=== PATIENT | male | born 1945 | race American Indian/Alaskan Native ===

== ENCOUNTER 2018-05-27 16:39 | Outpatient (REF) | payer MEDICARE, SELFPAY ==
[2018-05-27 19:28] LABS: HCT 47.7 % (40.0-50.0); HGB 15.8 g/dL (13.5-17.5); Mean Corp. HGB Concentration 33.1 g/dL (32.0-36.0); Mean Corpuscular Hemoglobin 29.2 pg (27.0-33.0); Mean Platelet Volume 11.2 fL (8.0-11.0); Platelet Count 144 x1000/uL (130-400); RBC 5.42 m/cumm (4.50-6.00); RBC Distribution Width 13.5 % (11.8-14.1); White Blood Cell Count 9.93 k/cumm (4.4-10.8)
[2018-05-27 19:54] LABS: Albumin 4.1 g/dL (3.4-5.0); Anion Gap 10.6 mmol/L (3-11); BUN 21 mg/dL (7-18); CO2 27.4 mmol/L (21.0-32.0); CREATININE 0.93 mg/dL (0.70-1.30); Chloride 103 mmol/L (98-107); Glucose 194 mg/dL (70-100); PHOSPHORUS 3.9 mg/dL (2.6-4.7); Sodium 141 mmol/L (136-145)
[2018-05-27 20:06] LABS: LDL CHOLESTEROL 95 mg/dL (<100)
== END 2018-05-27 16:59 ==
LOC: NCHCN 16:39
PROVIDERS: PCP Internal Medicine; Visit Provider Internal Medicine
DX: G31.84 Mild cognitive impairment of uncertain or unknown etiology (principal); M11.80 Other specified crystal arthropathies, unspecified site; E11.40 Type 2 diabetes mellitus with diabetic neuropathy, unspecified; E11.8 Type 2 diabetes mellitus with unspecified complications; Z79.4 Long term (current) use of insulin
CPT/HCPCS: 80069; 83721; 85027

== ENCOUNTER 2019-06-16 19:05 | Outpatient (REF) | payer MEDICARE, SELFPAY ==
[2019-06-16 19:29] LABS: ALT 41 U/L (16-63); Anion Gap 9.5 mmol/L (3-11); BUN 22 mg/dL (7-18); CO2 26.5 mmol/L (21.0-32.0); CREATININE 1.11 mg/dL (0.70-1.30); Calcium 8.8 mg/dL (8.5-10.1); Chloride 104 mmol/L (98-107); Glucose 168 mg/dL (70-100); LDL CHOLESTEROL 82 mg/dL (<100); Sodium 140 mmol/L (136-145); TSH 1.28 uIU/mL (0.36-3.74)
== END 2019-06-16 19:25 ==
LOC: NCHCN 19:05
PROVIDERS: PCP Internal Medicine; Visit Provider Internal Medicine
DX: E11.8 Type 2 diabetes mellitus with unspecified complications (principal); I10 Essential (primary) hypertension
CPT/HCPCS: 80048; 83721; 84443; 84460

== ENCOUNTER 2020-09-05 18:17 | Outpatient (REF) | payer MEDICARE, SELFPAY ==
[2020-09-05 15:55] LABS: HCT 46.7 % (40.0-50.0); HGB 15.5 g/dL (13.5-17.5); MCH 30.1 pg (27.0-33.0); MCHC 33.2 % (32.0-36.0); MCV 90.7 fL (80-95); MPV 11.1 fL (8.0-11.0); Platelet Count 135 10^3/uL (130-400); RBC 5.15 10^6/uL (4.36-5.78); RDW 12.2 % (11.8-14.1); RDW-SD 40.9 fL
[2020-09-05 16:49] LABS: Anion Gap 10.8 mmol/L (3-11); BUN 20 mg/dL (7-18); CO2 26.2 mmol/L (21.0-32.0); CREATININE 1.02 mg/dL (0.70-1.30); Calcium 8.8 mg/dL (8.5-10.1); Chloride 103 mmol/L (98-107); Glucose 227 mg/dL (74-106); Sodium 140 mmol/L (136-145); Vitamin B12 1097 pg/mL (193-986)
[2020-09-05 18:29] LABS: Creatine Kinase 173 U/L (39-308)
== END 2020-09-05 18:37 ==
LOC: NCHCN 18:17
PROVIDERS: PCP Internal Medicine; Visit Provider Internal Medicine
DX: R43.0 Anosmia (principal); E11.40 Type 2 diabetes mellitus with diabetic neuropathy, unspecified; M19.90 Unspecified osteoarthritis, unspecified site; G31.84 Mild cognitive impairment of uncertain or unknown etiology
CPT/HCPCS: 80048; 82550; 85027; 82607

== ENCOUNTER 2021-07-19 09:18 | Outpatient (REF) | payer OTHER, SELFPAY ==
[2021-07-19 20:40] LABS: COMMENT (LAB VIEW ONLY) 92.46 mg/dL; Microalb ug/mg Crea 8.9 ug/mg Cr
== END 2021-07-19 09:19 | disposition home or self-care (01) ==
LOC: NCHCN 09:18
PROVIDERS: PCP Internal Medicine; Visit Provider Internal Medicine
DX: E11.8 Type 2 diabetes mellitus with unspecified complications (principal)
CPT/HCPCS: 82043; 82570

== ENCOUNTER 2022-01-09 09:47 | Outpatient (REF) | payer OTHER, SELFPAY | END 2022-01-09 09:48 | disposition home or self-care (01) | LOC: NCHCN 09:47 | PROVIDERS: PCP Internal Medicine; Visit Provider Physician Assistant | DX: L08.89 Other specified local infections of the skin and subcutaneous tissue (principal) | CPT/HCPCS: 87077; 87070; 87186; 87205 ==

== ENCOUNTER 2022-07-09 12:25 | Outpatient (REF) | payer OTHER, SELFPAY ==
[2022-07-09 20:51] LABS: ALT 54 U/L (16-63); Anion Gap 9.9 mmol/L (3-11); BUN 15 mg/dL (7-18); CO2 27.1 mmol/L (21.0-32.0); Calcium 9.6 mg/dL (8.5-10.1); Calculated LDL 34 mg/dL (<100); Chloride 101 mmol/L (98-107); Cholesterol 99 mg/dL (<200); Estimated GFR 77.04 (mL/min/1.73m2); Glucose 200 mg/dL (74-106); HDL Cholesterol 49 mg/dL (40-60); Potassium 3.9 mmol/L (3.5-5.1); Sodium 138 mmol/L (136-145); Triglyceride 84 mg/dL (<150)
[2022-07-09 21:16] LABS: Creatine Kinase 181 U/L (39-308)
== END 2022-07-09 12:26 | disposition home or self-care (01) ==
LOC: NCHCN 12:25
PROVIDERS: PCP Internal Medicine; Visit Provider Internal Medicine
DX: E11.8 Type 2 diabetes mellitus with unspecified complications (principal); I10 Essential (primary) hypertension; Z79.4 Long term (current) use of insulin
CPT/HCPCS: 80048; 80061; 82550; 84460

== ENCOUNTER 2022-10-13 06:17 | Day surgery (SDC) | payer OTHER, SELFPAY ==
--- NOTE | 2022-10-13 06:34 | W.ANESPRE ---
General Info Date of Service Date Performed: 10/13/22 Height: 5 ft 7 in Weight: 88.451 kg Body Mass Index (BMI): 30.5 Surgical Procedure: Operation Date: 10/13/22 07:40 Proposed Procedure Side Surgeon p Cataract Extraction with IOL Implant Left Chicho Martinez MD Meds Allergies and Home Medications Allergies Allergy/AdvReac Type Severity Reaction Status Date / Time Phenylpiperazine Allergy Unknown Dizziness/L Unverified 10/13/22 06:41 Antidepressant ighthead Tetracyclic Antidepressants Allergy Unknown Dizziness/L Unverified 10/13/22 06:41 ighthead Tricyclic Antidepressants Allergy Unknown Dizziness/L Unverified 10/13/22 06:41 and Tricy ighthead nateglinide [From Starlix] AdvReac Intermediate Dizziness/L Unverified 10/13/22 06:41 ighthead Home Medication Medication Instructions Recorded albuterol sulfate 90 mcg/actuation 1 - 2 puff inhalation DIRECTED 10/09/22 aerosol inhaler (Ventolin HFA) amlodipine 2.5 mg tablet 2.5 mg PO HS 10/09/22 ascorbic acid (vitamin C) 500 mg 500 mg PO DAILY 10/09/22 tablet (Vitamin C) aspirin 81 mg capsule,delayed 81 mg PO DAILY 10/09/22 release atorvastatin 20 mg tablet 20 mg PO HS 10/09/22 azelastine 205.5 mcg (0.15 %) 1 spray intranasal BID 10/09/22 nasal spray coffee extract 50 mg-phosphatidyl 1 tab PO DAILY 10/09/22 serine 50 mg chewable tablet (Neuriva Original) hydrochlorothiazide 25 mg tablet 25 mg PO DAILY 10/09/22 insulin glargine 100 unit/mL (3 90 unit subcut DIRECTED 10/09/22 mL) subcutaneous pen (Basaglar KwikPen U-100 Insulin) losartan 100 mg tablet 100 mg PO DAILY 10/09/22 mecobalamin (vitamin B12) 1,000 1,000 mcg PO DAILY 10/09/22 mcg chewable tablet metformin 1,000 mg tablet 1,000 mg PO DIRECTED 10/09/22 multivitamin 1 tab PO DAILY 10/09/22 vitamin B complex 1 tab PO DAILY 10/09/22 potassium 99 mg tablet 99 mg PO DAILY 10/10/22 Current Visit Medications: Current Medications Generic Name Dose Route Start Last Admin Trade Name Yaronq PRN Reason Stop Dose Admin Acetaminophen 1,000 mg 10/13/22 06:00 Acetaminophen 500 Mg Tab PO Q4H PRN PRN Miscellaneous Medication 0 ml 10/13/22 06:00 Tropicam./Phenyleph. (1/2.5%) 5 Ml Btl OS DIRECTED [facility] Miscellaneous Medication 0 ml 10/13/22 06:00 Prednisolone 1%, Moxifloxacin 0.5%, Nepafenac 0.1% 5ml Btl OS DIRECTED [facility] Tetracaine HCl 0 ml 10/13/22 06:00 Tetracaine 0.5% 4 Ml Btl OS DIRECTED [facility] PFSH Active Problems Active Problems: Problem Status Onset Code Cortical cataract of left eye H26.9 Nuclear sclerotic cataract of left eye H25.12 Loss of smell R43.0 Dysgeusia R43.2 Actinic keratosis L57.0 Medical History Medical History Asthma mild Atrophic gastritis Bilateral cataracts Bilateral sacroiliitis Bilateral tinnitus BPPV (benign paroxysmal positional vertigo) Chest pain Pt. states he is unaware of this Chronic depression Cough Diabetic peripheral neuropathy Diabetic retinopathy Frequent falls Per pt. states he has neuropathy in both his feet, does use a cane on occasion, but does not typically fall, patient is able to get up on his own HTN (hypertension) Hyperplastic colonic polyp Leg cramps Mild cognitive impairment Osteoarthritis PND (post-nasal drip) Pseudogout Rotator cuff syndrome SCC (squamous cell carcinoma) Spinal stenosis, lumbar Type 2 diabetes mellitus Umbilical hernia Surgical History Surgical History (Updated 10/13/22 @ 07:16 by Sonali Beal) H/O laminectomy History of appendectomy Hx of tonsillectomy Tobacco Smoking/Tobacco Use Status: Never Alcohol Alcohol Intake: current Alcohol intake frequency: holidays/special occasions only Substance Use Substance use: Never Substance use type: does not use Vital Signs and Lab Results Lab Results Blood Type / Crossmatch: No Data to Display Complete Blood Count: No Data to Display Complete Metabolic Panel: No Data to Display Liver Function Panel: No Data to Display Coagulation Panel: No Data to Display Cardiac Panel: No Data to Display Arterial Blood Gas: No Data to Display Venous Blood Gas: No Data to Display Pancreas Panel: No Data to Display Thyroid Panel: No Data to Display Infectious Disease: No Data to Display Blood Cultures: No Data to Display Toxicology Panel: No Data to Display Anesthesia Assessment and Plan Anesthesia History Personal History: No History of Anesthesia Complications Family History: No Family History of Anesthesia Complications Exercise Tolerance Exercise Tolerance: Metabolic Equivalents>4 Pertinent Negatives Pertinent Negatives: No Symptoms of GERD and No History of CVA/TIA Cardiac & Pulmonary Exam Cardiac Exam: Normal S1/S2 Heart Sounds Pulmonary Exam: Clear Bilateral Breath Sounds Implantable Cardiac Device Does patient have a Pacemaker or an ICD?: No Airway Exam Known Difficult Airway: No Mallampati Class: 2 Mouth Opening: Normal (> 3cm) Thyromental Distance: Greater than 3 cm Neck Range of Motion: Full ROM Neck Circumference: Normal Teeth Condition: Generalized Poor Dentition and Loose or Chipped (reports multiple chipped teeth, denies any loose at this point. ) ASA Classification ASA Score: ASA 3 Emergency Case?: No NPO Status NPO Status: NPO Clears >2 hours, Solids >8 hours Anesthesia Plan Resuscitation Status: Full Code Anesthesia Technique: MAC Anesthesia Airway Planned: Natural Airway Monitors Used: Standard Monitors
[2022-10-13 06:52] VITALS: BP 153/84; PULSE 81; RESP 16; TEMP 36.6; O2SAT 98
[2022-10-13] MEDS: Tropicam./Phenyleph. (1/2.5%) 5 ML BTL OS ×3 (07:02→07:12)
[2022-10-13 07:31] VITALS: BMI 30.5
[2022-10-13] MEDS: Tetracaine 0.5% 4 ML BTL OS (07:48)
[2022-10-13] MEDS: Lidocaine 1% Pres-Free 5 ML VIAL (07:49)
[2022-10-13] MEDS: Balanced Salt Soln.-PLUS 500 ML BAG (07:50)
[2022-10-13] MEDS: Duovisc Viscoelastic System EACH 1 EACH (07:51)
[2022-10-13] MEDS: Povidone-Iodine Ophth 30 ML BTL (07:51)
[2022-10-13] MEDS: Lidocaine 2% Jelly 6 ML SYR (07:52)
[2022-10-13 07:59] VITALS: BP 148/97; PULSE 74; RESP 16; TEMP 36.8; O2SAT 95
--- NOTE | 2022-10-13 08:00 | W.PM.DSUDISC ---
Date of service: 10/13/22 Time of Service: 08:00 Discharge Plan Disposition Patient Disposition: Home Discharge Details Attending Provider: Chicho Martinez Primary Care Provider: Ever Nguyen Home Meds and New Rx's Prescriptions: No Action multivitamin Tablet 1 tab PO DAILY atorvastatin 20 mg Tablet 20 mg PO HS amlodipine 2.5 mg Tablet 2.5 mg PO HS aspirin 81 mg Capsule,Delayed Release(Dr/Ec) 81 mg PO DAILY ascorbic acid (vitamin C) [Vitamin C] 500 mg Tablet 500 mg PO DAILY metformin 1,000 mg Tablet 1,500 mg PO DIRECTED vitamin B complex Tablet 1 tab PO DAILY hydrochlorothiazide 25 mg Tablet 25 mg PO DAILY albuterol sulfate [Ventolin HFA] 90 mcg/actuation Hfa Aerosol Inhaler 1 - 2 puff INHALATION DIRECTED losartan 100 mg Tablet 100 mg PO DAILY insulin glargine [Basaglar KwikPen U-100 Insulin] 100 unit/mL (3 mL) Insulin Pen 90 unit SUBCUT DIRECTED Rx Instructions: 90QAM and 65 units HS azelastine 205.5 mcg (0.15 %) [place],Non-Aerosol 1 spray INTRANASAL BID Patient Comments: 10/13/22 Caused nosebleeds so pt stopped taking. mecobalamin (vitamin B12) 1,000 mcg Tablet,Chewable 1,000 mcg PO DAILY Neuriva Original 50-50 mg Tablet,Chewable 1 tab PO DAILY potassium 99 mg Tablet 99 mg PO DAILY Discharge Instructions Stand Alone Forms: Post-op Topical Cataract, Mike Contrerasey (DSU) Discharge Orders Discharge Orders: Discharge Order (Routine); Ordered 10/13/22 Ordered By: Chicho Martinez DS: Diagnosis Discharge Diagnosis (1) Nuclear sclerotic cataract of left eye: Status: Resolved (2) Cortical cataract of left eye: Status: Resolved
--- NOTE | 2022-10-13 08:01 | ROE_ITS ---
Date of service: 10/13/22 Time of Service: 08:01 Operative Note Operative Note DATE OF PROCEDURE: 10/13/22 PRE-OP DIAGNOSIS: Nuclear/cortical cataract, left eye POST-OP DIAGNOSIS: same PROCEDURE: Cataract extraction using phacoemulsification with intraocular lens implant, left eye SURGEON: Chicho Martinez ANESTHESIA TYPE: Local By Surgeon and MAC Refer to Anesthesia Record PATHOLOGY: none sent COMPLICATIONS: None Patient was transported to: same day Patient's condition: stable Implants: [employer] Bar Tecnis Eyhance DIB00 Indications: Progressive decreased vision due to cataract, left eye Procedure Description: CATARACT SURGERY OPERATIVE REPORT PREOPERATIVE DIAGNOSIS: 1. Nuclear/cortical cataract, left eye POSTOPERATIVE DIAGNOSIS: Same OPERATION: 1. Cataract extraction using phacoemulsification with posterior chamber intraocular lens implant, left eye. IOL: IOL Industry Analyst/Model: [employer] Bar Tecnis Eyhance DIB00 IOL Power: + 17.5 diopters IOL Serial Number: [id number] Optic Diameter: 6.0 mm Haptic/Overall Diameter: 13.0 mm PHACO INFO: [employer] Vision System with OZil and Active Fluidics Cumulative Dispersed Energy (CDE): 10.28 seconds SURGEON: Chicho Martinez MD, LD ANESTHESIA: Monitored A [facility] (MAC), with local sub-tenon's anesthetic infiltration COMPLICATIONS: None SPECIMENS: None INDICATIONS FOR PROCEDURE: The patient is a 76-year-old male with history of progressive decreased vision in his left eye secondary to the development of nuclear/cortical cataract. The option of cataract surgery was offered to the patient and he felt he was symptomatic enough that he wished to proceed. PROCEDURE: The correct surgical eye was identified and marked as the left eye and the pupil was dilated in the preoperative area using mydriatics and c ycloplegics. The dilated pupil size was 7.0 mm. . The patient elected to proceed without oral sedation. The patient was brought to the operating room where cardiopulmonary monitoring was instituted and surgical time-out was performed, confirming the correct operative eye and IOL power. Topical anesthesia was administered and ophthalmic povidone-iodine 5% was instilled into the conjunctival fornices. Lidocaine gel was applied to the cornea and the nadege-ocular area was prepped with Betadine 10% solution and draped in the usual sterile fashion for intraocular surgery, including an aperture drape. A Tegaderm transparent film dressing was cut in half and used to cover the lashes and lid margins. Care was taken to sequester the lashes and lid margins under the Tegaderm dressing. A lid speculum was placed between the lids of the operative eye and the Jerel Lux[employer] Revalia operating microscope was maneuvered into position. Gen scissors were then used to make a conjunctival buttonhole approximately 6mm posterior to the limbus in the inferonasal quadrant. Blunt dissection was carried out to expose bare sclera, and a blunt-tipped sub-tenon?s anesthesia cannula was introduced and passed posteriorly along the globe where non- preserved plain lidocaine was injected into posterior sub-Tenon?s space. A sideport knife was used to make a paracentesis port superiorly/superiortemporal ly. Intraocular phenylephrine/lidocaine was injected int the anterior chamber.. The anterior chamber was filled with viscoelastic. A keratome knife was used to construct a 2-plane near-clear corneal tunnel extending 2.0mm into clear cornea temporally. A flap was raised on the anterior capsule and capsulorhexis forceps were used to complete a continuous curvilinear capsulorhexis of 5.0 mm. Balanced salt solution was then used to perform cortical cleaving hydrodissection and nuclear hydrodelineation until the lens could be freely rotated within the capsular bag. The lens nucleus was then disassembled and removed within the capsular bag and iris plane using phacoemulsification. Residual cortical material was removed using the 45-degree angled silicone I/A tip with 0.3mm port. The posterior capsule was carefully polished to remove as much residual lens epithelial cells as safely possible. The capsular bag was then inflated and the anterior chamber deepened with viscoelastic. The lens implant described above was inserted into the capsular bag using the Bar and Bar Simplicity pre-loaded injector. . A Kuglen hook was used to dial the IOL into position. Residual viscoelastic was then removed first from posterior to the IOL, then from the anterior chamber using the I/A handpiece. The lens implant was noted to center nicely within the capsular bag. The incisions were stromally hydrated, and the anterior chamber was reformed using BSS. Then 0.5cc of moxifloxacin 1.0mg/ml were injected into the capsular bag and anterior chamber. The incisions were checked with a Weck spear and found to be secure. Several drops of ophthalmic povidone-iodine 5% were then applied to the eye followed by two drops of Imprimis combination prednisolone/moxifloxacin/nepafenac solution. The drapes were removed and a clear plastic protective eye shield was placed over the eye. The patient was then returned to Same Day Surgery in stable condition.
--- NOTE | 2022-10-13 08:24 | W.ANESPOSTOP ---
Postoperative Evaluation Date, Time and Location Date Performed: 10/13/22 Time Performed: 08:15 Patient Location: Day Surgery Unit Vital Signs Most Recent Imported Vital Signs: Most Recent Vital Signs Temp Pulse Resp BP Pulse Ox 36.8 C 74 16 148/97 H 95 10/13/22 07:59 10/13/22 07:59 10/13/22 07:59 10/13/22 07:59 10/13/22 07:59 Pain Score Most Recent Pain Score: Most Recent Pain Score Pain Level 0 10/13/22 07:59 Assessment Mental Status: Awake (Alert & Oriented to Patient Baseline) Airway and Respiratory Function: Patent airway with normal (patient baseline) respiratory exam Cardiovascular Function: Hemodynamically Stable Hydration Status: Adequately Hydrated Nausea & Vomiting: No Nausea or Vomiting Pain: Pt. Denies Any Pain Peripheral Nerve Block: Other (Local by Dr. Martinez)
== END 2022-10-13 08:23 | disposition home or self-care (01) ==
LOC: SUR 06:17
PROVIDERS: PCP Internal Medicine; Visit Provider Ophthalmology
PROC: (CPT 66984; principal; 2022-10-13 07:30)
DX: H25.12 Age-related nuclear cataract, left eye (principal)
CPT/HCPCS: 66984; V2632

== ENCOUNTER 2022-10-27 08:02 | Day surgery (SDC) | payer OTHER, SELFPAY ==
--- NOTE | 2022-10-27 06:33 | W.ANESPRE ---
General Info Date of Service Date Performed: 10/27/22 Height: 5 ft 7 in Weight: 90 kg Body Mass Index (BMI): 31.1 Surgical Procedure: Operation Date: 10/27/22 10:40 Proposed Procedure Side Surgeon p Cataract Extraction with IOL Implant Right Chicho Martinez MD Meds Allergies and Home Medications Allergies Allergy/AdvReac Type Severity Reaction Status Date / Time Phenylpiperazine Allergy Unknown Dizziness/L Unverified 10/27/22 08:33 Antidepressant ighthead Tetracyclic Antidepressants Allergy Unknown Dizziness/L Unverified 10/27/22 08:33 ighthead Tricyclic Antidepressants Allergy Unknown Dizziness/L Unverified 10/27/22 08:33 and Tricy ighthead nateglinide [From Starlix] AdvReac Intermediate Dizziness/L Unverified 10/27/22 08:33 ighthead Home Medication Medication Instructions Recorded albuterol sulfate 90 mcg/actuation 1 - 2 puff inhalation DIRECTED 10/09/22 aerosol inhaler (Ventolin HFA) amlodipine 2.5 mg tablet 2.5 mg PO HS 10/09/22 ascorbic acid (vitamin C) 500 mg 500 mg PO DAILY 10/09/22 tablet (Vitamin C) aspirin 81 mg capsule,delayed 81 mg PO DAILY 10/09/22 release atorvastatin 20 mg tablet 20 mg PO HS 10/09/22 azelastine 205.5 mcg (0.15 %) 1 spray intranasal BID 10/09/22 nasal spray coffee extract 50 mg-phosphatidyl 1 tab PO DAILY 10/09/22 serine 50 mg chewable tablet (Neuriva Original) hydrochlorothiazide 25 mg tablet 25 mg PO DAILY 10/09/22 insulin glargine 100 unit/mL (3 90 unit subcut DIRECTED 10/09/22 mL) subcutaneous pen (Basaglar KwikPen U-100 Insulin) losartan 100 mg tablet 100 mg PO DAILY 10/09/22 mecobalamin (vitamin B12) 1,000 1,000 mcg PO DAILY 10/09/22 mcg chewable tablet metformin 1,000 mg tablet 1,500 mg PO DIRECTED 10/09/22 multivitamin 1 tab PO DAILY 10/09/22 vitamin B complex 1 tab PO DAILY 10/09/22 potassium 99 mg tablet 99 mg PO DAILY 10/10/22 Current Visit Medications: Current Medications Generic Name Dose Route Start Last Admin Trade Name Freq PRN Reason Stop Dose Admin Acetaminophen 1,000 mg 10/27/22 06:00 Acetaminophen 500 Mg Tab PO Q4H PRN PRN Miscellaneous Medication 0 ml 10/27/22 06:00 Tropicam./Phenyleph. (1/2.5%) 5 Ml Btl OD DIRECTED [facility] Miscellaneous Medication 0 ml 10/27/22 06:00 Prednisolone 1%, Moxifloxacin 0.5%, Nepafenac 0.1% 5ml Btl OD DIRECTED [facility] Tetracaine HCl 0 ml 10/27/22 06:00 Tetracaine 0.5% 4 Ml Btl OD DIRECTED [facility] PFSH Active Problems Active Problems: Problem Status Onset Code Cortical cataract of right eye H26.9 Nuclear age-related cataract, right eye H25.11 Loss of smell R43.0 Dysgeusia R43.2 Actinic keratosis L57.0 Nuclear sclerotic cataract of left eye H25.12 Cortical cataract of left eye H26.9 Medical History Medical History Asthma mild Atrophic gastritis Bilateral cataracts Bilateral sacroiliitis Bilateral tinnitus BPPV (benign paroxysmal positional vertigo) Chest pain Pt. states he is unaware of this Chronic depression Cough Diabetic peripheral neuropathy Diabetic retinopathy Frequent falls Per pt. states he has neuropathy in both his feet, does use a cane on occasion, but does not typically fall, patient is able to get up on his own HTN (hypertension) Hyperplastic colonic polyp Leg cramps Mild cognitive impairment Osteoarthritis PND (post-nasal drip) Pseudogout Rotator cuff syndrome SCC (squamous cell carcinoma) Spinal stenosis, lumbar Type 2 diabetes mellitus Umbilical hernia Medical History Comments:: Frequent PACS; placed on monitor to confirm No atrial fibrillation; chronic cough d/t PND Surgical History Surgical History (Updated 10/27/22 @ 08:32 by Sonali Beal) H/O laminectomy History of appendectomy Hx of cataract removal with insertion of prosthetic lens Hx of tonsillectomy Tobacco Smoking/Tobacco Use Status: Never Alcohol Alcohol Intake: current Alcohol intake frequency: holidays/special occasions only Substance Use Substance use: Never Substance use type: does not use Vital Signs and Lab Results Vital Signs Most Recent Vital Signs in EMR: Temp Pulse Resp BP Pulse Ox 36.4 C L 74 16 141/84 H 96 10/27/22 08:38 10/27/22 08:38 10/27/22 08:38 10/27/22 08:38 10/27/22 08:38 Lab Results Blood Type / Crossmatch: No Data to Display Complete Blood Count: No Data to Display Complete Metabolic Panel: No Data to Display Liver Function Panel: No Data to Display Coagulation Panel: No Data to Display Cardiac Panel: No Data to Display Arterial Blood Gas: No Data to Display Venous Blood Gas: No Data to Display Pancreas Panel: No Data to Display Thyroid Panel: No Data to Display Infectious Disease: No Data to Display Blood Cultures: No Data to Display Toxicology Panel: No Data to Display Anesthesia Assessment and Plan Anesthesia History Personal History: No History of Anesthesia Complications Family History: No Family History of Anesthesia Complications Exercise Tolerance Exercise Tolerance: Metabolic Equivalents>4 Cardiac & Pulmonary Exam Cardiac Exam: Normal S1/S2 Heart Sounds Pulmonary Exam: Clear Bilateral Breath Sounds Implantable Cardiac Device Does patient have a Pacemaker or an ICD?: No Airway Exam Known Difficult Airway: No Mallampati Class: 2 Mouth Opening: Normal (> 3cm) Thyromental Distance: Greater than 3 cm Neck Range of Motion: Full ROM Neck Circumference: Normal Teeth Condition: Generalized Poor Dentition and Loose or Chipped (reports multiple chipped teeth, denies any loose at this point. ) ASA Classification ASA Score: ASA 3 Emergency Case?: No NPO Status NPO Status: NPO Clears >2 hours, Solids >8 hours Anesthesia Plan Resuscitation Status: Full Code Anesthesia Technique: MAC Anesthesia Airway Planned: Natural Airway Monitors Used: Standard Monitors Preoperative Comments:: repeat cataract. no changes in health history. no MKO for previous. would like to proceed with no MKO again.
[2022-10-27 08:38] VITALS: BP 141/84; PULSE 74; RESP 16; TEMP 36.4; O2SAT 96
[2022-10-27 08:47] VITALS: BMI 31.1
[2022-10-27] MEDS: Tropicam./Phenyleph. (1/2.5%) 5 ML BTL OD ×3 (08:51→09:05)
[2022-10-27] MEDS: Tetracaine 0.5% 4 ML BTL OD (09:53)
[2022-10-27] MEDS: Balanced Salt Soln.-PLUS 500 ML BAG (09:54)
[2022-10-27] MEDS: Duovisc Viscoelastic System EACH 1 EACH (09:56)
[2022-10-27] MEDS: Lidocaine 1% Pres-Free 5 ML VIAL (09:57)
[2022-10-27] MEDS: Lidocaine 2% Jelly 6 ML SYR (09:59)
[2022-10-27] MEDS: Povidone-Iodine Ophth 30 ML BTL (10:02)
[2022-10-27] MEDS: Phenylephrine/Lidocaine (15/10) MG/ML 1 ML VIAL (10:02)
[2022-10-27 10:13] VITALS: BP 145/64; PULSE 78; RESP 16; TEMP 36.3; O2SAT 96
--- NOTE | 2022-10-27 10:15 | ROE_ITS ---
Date of service: 10/27/22 Time of Service: 10:16 Operative Note Operative Note DATE OF PROCEDURE: 10/27/22 PRE-OP DIAGNOSIS: Nuclear cataract, right eye POST-OP DIAGNOSIS: same PROCEDURE: Cataract extraction using phacoemulsification with intraocular lens implant, right eye SURGEON: Chicho Martinez ANESTHESIA TYPE: Local By Surgeon and MAC Refer to Anesthesia Record ESTIMATED BLOOD LOSS: 0 PATHOLOGY: none sent COMPLICATIONS: None Patient was transported to: same day Patient's condition: stable Implants: [employer] Eyhance DIB00 Indications: Progressive visual loss due to cataract, right eye Procedure Description: CATARACT SURGERY OPERATIVE REPORT PREOPERATIVE DIAGNOSIS: 1. Nuclear cataract, right eye POSTOPERATIVE DIAGNOSIS: Same OPERATION: 1. Cataract extraction using phacoemulsification with posterior chamber intraocular lens implant, right eye. IOL: IOL Credit Department Manager/Model: [employer] Eyhance DIB00 IOL Power: + 17.5 diopters IOL Serial Number: [id number] Optic Diameter: 6.0mm Haptic/Overall Diameter: 13.0mm PHACO INFO: [employer] Vision System with OZil and Active Fluidics Cumulative Dispersed Energy (CDE): 12.56 seconds SURGEON: Chicho Martinez MD, LD ANESTHESIA: Monitored Anesthesia Care (MAC), with local sub-tenon's anesthetic infiltration COMPLICATIONS: None SPECIMENS: None INDICATIONS FOR PROCEDURE: The patient is a 76-year-old gentleman with history of diminished visual acuity in both eyes secondary to the development of bilateral nuclear cataract. He has already undergone cataract surgery in the left eye. He has significant history of dry eye and corneal epitheliopathy. Postoperative visual recovery has been limited by the presence of his ocular surface disease in the left eye. He now presents for cataract surgery in the right eye. PROCEDURE: The correct surgical eye was identified and marked as the right eye and the pupil was dilated in the preoperative area using mydriatics and cycloplegics. The dilated pupil size was 6.0 mm. The patient elected to proceed without oral sedation. The patient was brought to the operating room where cardiopulmonary monitoring was instituted and surgical time-out was performed, confirming the correct operative eye and IOL power. Topical anesthesia was administered and ophthalmic povidone-iodine 5% was instilled into the conjunctival fornices. Lidocaine gel was applied to the cornea and the nadege-ocular area was prepped with Betadine 10% solution and draped in the usual sterile fashion for intraocular surgery, including an aperture drape. A Tegaderm transparent film dressing was cut in half and used to cover the lashes and lid margins. Care was taken to sequester the lashes and lid margins under the Tegaderm dressing. A lid speculum was placed between the lids of the operative eye and the Jerel Lux[employer] Revalia operating microscope was maneuvered into position. He experienced significant discomfort from the lid speculum despite topical tetracaine drops and lidocaine gel. Gen scissors were then used to make a conjunctival buttonhole approximately 6mm posterior to the limbus in the inferonasal quadrant. Blunt dissection was carried out to expose bare sclera, and a blunt-tipped sub-tenon?s anesthesia cannula was introduced and passed posteriorly along the globe where non- preserved plain lidocaine was injected into posterior sub-Tenon?s space. A sideport knife was used to make a paracentesis port inferotemporally. Intraocular phenylephrine/lidocaine was injected into the anterior chamber. The anterior chamber was filled with viscoelastic. A keratome knife was used to construct a 2-plane near-clear corneal tunnel extending 2.0mm into clear cornea superiortemporally. A flap was raised on the anterior capsule and capsulorhexis forceps were used to complete a continuous curvilinear capsulorhexis of 4.5 mm. Balanced salt solution was then used to perform cortical cleaving hydrodissection and nuclear hydrodelineation until the lens could be freely rot ated within the capsular bag. The lens nucleus was then disassembled and removed within the capsular bag and iris plane using phacoemulsification. Residual cortical material was removed using the I/A handpiece. The posterior capsule was carefully polished to remove as much residual lens epithelial cells as safely possible. The capsular bag was then inflated and the anterior chamber deepened with viscoelastic. The lens implant described above was inserted into the capsular bag using the [employer] Eli[employer] Simplicity pre-loaded injector. A Kuglen hook was used to dial the IOL into position. Residual viscoelastic was then removed first from posterior to the IOL, then from the anterior chamber using the I/A handpiece. The lens implant was noted to center nicely within the capsular bag. The incisions were stromally hydrated, and the anterior chamber was reformed using BSS. Then 0.5cc of moxifloxacin 1.0mg/ml were injected into the capsular bag and anterior chamber. The incisions were checked with a Weck spear and found to be secure. Several drops of ophthalmic povidone-iodine 5% were then applied to the eye followed by two drops of Imprimis combination prednisolone/moxifloxacin/nepafenac solution. The drapes were removed and a clear plastic protective eye shield was placed over the eye. The patient was then returned to Same Day Surgery in stable condition.
--- NOTE | 2022-10-27 10:15 | W.PM.DSUDISC ---
Date of service: 10/27/22 Time of Service: 10:15 Discharge Plan Disposition Patient Disposition: Home Discharge Details Attending Provider: Chicho Martinez Primary Care Provider: Ever Nguyen Home Meds and New Rx's Prescriptions: No Action multivitamin Tablet 1 tab PO DAILY atorvastatin 20 mg Tablet 20 mg PO HS amlodipine 2.5 mg Tablet 2.5 mg PO HS aspirin 81 mg Capsule,Delayed Release(Dr/Ec) 81 mg PO DAILY ascorbic acid (vitamin C) [Vitamin C] 500 mg Tablet 500 mg PO DAILY metformin 1,000 mg Tablet 1,500 mg PO DIRECTED vitamin B complex Tablet 1 tab PO DAILY hydrochlorothiazide 25 mg Tablet 25 mg PO DAILY albuterol sulfate [Ventolin HFA] 90 mcg/actuation Hfa Aerosol Inhaler 1 - 2 puff INHALATION DIRECTED losartan 100 mg Tablet 100 mg PO DAILY insulin glargine [Basaglar KwikPen U-100 Insulin] 100 unit/mL (3 mL) Insulin Pen 90 unit SUBCUT DIRECTED Rx Instructions: 90QAM and 65 units HS azelastine 205.5 mcg (0.15 %) [place],Non-Aerosol 1 spray INTRANASAL BID Patient Comments: 10/13/22 Caused nosebleeds so pt stopped taking. mecobalamin (vitamin B12) 1,000 mcg Tablet,Chewable 1,000 mcg PO DAILY Neuriva Original 50-50 mg Tablet,Chewable 1 tab PO DAILY potassium 99 mg Tablet 99 mg PO DAILY Discharge Instructions Stand Alone Forms: Post-op Topical Cataract, Mike King (DSU) Discharge Orders Discharge Orders: Discharge Order (Routine); Ordered 10/27/22 Ordered By: Chicho Martinez DS: Diagnosis Discharge Diagnosis (1) Nuclear age-related cataract, right eye: Status: Resolved (2) Cortical cataract of right eye: Status: Resolved
[2022-10-27] MEDS: Acetaminophen 500 MG TAB 1000 MG PO (10:17)
--- NOTE | 2022-10-27 10:21 | W.ANESPOSTOP ---
Postoperative Evaluation Date, Time and Location Date Performed: 10/27/22 Time Performed: 10:21 Patient Location: Day Surgery Unit Vital Signs Most Recent Imported Vital Signs: Most Recent Vital Signs Temp Pulse Resp BP Pulse Ox 36.3 C L 78 16 145/64 H 96 10/27/22 10:13 10/27/22 10:13 10/27/22 10:13 10/27/22 10:13 10/27/22 10:13 Pain Score Most Recent Pain Score: Most Recent Pain Score Pain Level 0 10/27/22 08:38 Assessment Mental Status: Awake (Alert & Oriented to Patient Baseline) Airway and Respiratory Function: Patent airway with normal (patient baseline) respiratory exam Cardiovascular Function: Hemodynamically Stable Hydration Status: Adequately Hydrated Nausea & Vomiting: No Nausea or Vomiting Pain: Pt. Denies Any Pain Peripheral Nerve Block: Patient did not receive a nerve block
[2022-10-27 10:44] VITALS: BP 121/77; PULSE 96; RESP 18; TEMP 36.4; O2SAT 81
== END 2022-10-27 10:53 | disposition home or self-care (01) ==
LOC: SUR 08:02
PROVIDERS: PCP Internal Medicine; Visit Provider Ophthalmology
PROC: (CPT 66984; principal; 2022-10-27 10:30)
DX: H25.11 Age-related nuclear cataract, right eye (principal)
CPT/HCPCS: 66984; V2632; J2250

== ENCOUNTER → 2024-01-21 00:50 | Outpatient (CLI) | payer OTHER, SELFPAY ==
--- NOTE | 2024-01-21 | DI.NM_ITS ---
APPROVED REPORT Exam: Pharmacologic Patient Location: Out-Patient Room/Bed: Stress Nurse: Paulina Dinero RN and Hieu Murry RN Ordering Provider:SIMÓN GONZALEZ, Contact Number: [phone] BMI: 31.79 Baseline Rhythm: Sinus Rhythm Indications: Chest pain unspecified; Long time diabetic; Poor exercise tolerance; Recent increase in chest tightness. Medical History Medical History: DM Type 2; Obesity; Mild neurocognitive disorder; Major depression; HTN; Osteoarthri tis; Chest pain; Recurrent falls; Neuropathy. Cardiac Medications: Amlodipine; Aspirin; Atorvastatin; Vit. B12; Basaglar Kwikpen U-100 Insulin; HCT Z; Losartan; Metformin; Neuriva; Potassium Chloride; Ventolin HFA; Vit. B Complex. Allergies: Starlix; Antidepressants. Cardiac Risk Factors: Family Hx; Diabetes; HTN; Asthma; Hypercholesterolemia; Obesity. Previous Cardiac Procedures: None. Pretest Chest Pain Characteristics: None. Exercise History: Sedentary Physical Disabilities: Recurrent Falls; Unsteadiness. Lung Sounds: Clear Heart Sounds: Regular Stress Test Details Test: Pharmacologic stress testing performed using 0.4 mg of regadenoson per 5 mL given IV over 10 s econds. Reason for pharmacologic stress test: physical limitation. Nuclear Acquisition: Rest Tc-99m/Stress Tc-99m 1 day Rest Isotope: Tc-99m Sestamibi. Dose: 10.0 Date: 01/21/2024 Injection Time: 0850 Stress Isotope: Tc-99m Sestamibi. Dose: 30.0 Date: 01/21/2024 Injection Time: 1015 HR Resting HR Supine: 77 bpm Max Heart Rate (APMHR): 140.198342 bpm Target HR (85% APMHR): 119.389163 bpm Max HR Achieved: 88 bpm % of APMHR: 62.86 Recovery HR: 85 bpm BP Resting BP Supine: 128/70 mmHg Max BP: 150/48 mmHg Recovery BP: 150/48 mmHg ECG Resting ECG: Sinus Rhythm Ectopy: None. Stress ECG: Sinus Rhythm ST Change: Nondiagnostic low heart rate Arrhythmia: None. Recovery ECG: Sinus Rhythm Recovery ST Change: Nondiagnostic low heart rate Recovery Arrhythmia: None. Clinical Stress Symptoms: None. Angina Score: None. Rate Pressure Product: [id number] Stress ECG Conclusion 1. Resting electrocardiogram showed low voltage, incomplete right bundle branch block, late transitio n 2. Patient underwent testing using pharmacologic stress with regadenoson 3. Peak heart rate achieved was 63% of maximal for age 4. Electrocardiographic portion of the test was nondiagnostic 5. See MPI report Stress Test Summary STAGE HR BP SpO2 Symptoms NOTES Supine 77 128/70 92 1 min post Lexiscan injection 77 128/76 3 min post Lexiscan injection 88 142/58 92 6 min post Lexiscan injection 85 132/62 95 9 min post Lexiscan injection 86 150/48 MPI Conclusion Myocardial perfusion is normal. There is no ischemia or evidence of prior infarction Ejection fraction 71% with normal wall motion Radiologist Interpretation Radiologist agrees with Visual Merchandiser's Interpretation. Radiologist Interpretation by: Stephane Bhat MD Interpretation Date/Time: 01/22/2024 20:54:52
[2024-01-21] MEDS: Regadenoson 0.4 MG/5 ML SYR IVP (10:06)
== END ==
PROVIDERS: PCP Internal Medicine; Visit Provider Internal Medicine
DX: R07.9 Chest pain, unspecified (principal)
CPT/HCPCS: 78452; 93016; 93018; 93017; J2785

== ENCOUNTER 2024-04-14 12:35 | Outpatient (REF) | payer OTHER, SELFPAY ==
[2024-04-14 20:09] LABS: ALT 48 U/L (16-63); AST 39 U/L (15-37); Alkaline Phosphatase 75 U/L (46-116); Anion Gap 11.8 mmol/L (3-11); BUN 14 mg/dL (7-18); Bilirubin, Total 0.82 mg/dL (0.2-1.0); CO2 26.2 mmol/L (21.0-32.0); Calcium 9.3 mg/dL (8.5-10.1); Calculated LDL 25 mg/dL (<100); Chloride 101 mmol/L (98-107); Cholesterol 87 mg/dL (<200); Estimated GFR 76.08 (mL/min/1.73m2); Glucose 187 mg/dL (74-106); HDL Cholesterol 50 mg/dL (40-60); Potassium 3.9 mmol/L (3.5-5.1); Sodium 139 mmol/L (136-145); Total Protein 7.2 g/dL (6.4-8.2); Triglyceride 61 mg/dL (<150)
[2024-04-14 20:34] LABS: Microalb ug/mg Crea 9.7 ug/mg Cr
== END 2024-04-14 12:36 | disposition home or self-care (01) ==
LOC: NCHCN 12:35
PROVIDERS: PCP Internal Medicine; Visit Provider Internal Medicine
DX: E13.42 Other specified diabetes mellitus with diabetic polyneuropathy (principal)
CPT/HCPCS: 80053; 80061; 82043; 82570

== ENCOUNTER 2025-01-19 15:09 | Outpatient (REF) | payer BC, SELFPAY ==
[2025-01-19 20:22] LABS: Abs Immature Grans 0.02 10^3/uL (0.0-0.06); Eosinophils % 2.1 %; Immature Grans % 0.2 %; Platelet Count 166 10^3/uL (130-400)
[2025-01-19 20:55] LABS: AST 39 U/L (15-37); Anion Gap 10.7 mmol/L (3-11); BUN 16 mg/dL (7-18); CO2 28.3 mmol/L (21.0-32.0); CREATININE 0.9 mg/dL (0.70-1.30); Calcium 9.6 mg/dL (8.5-10.1); Calculated LDL 21 mg/dL (<100); Chloride 103 mmol/L (98-107); Cholesterol 86 mg/dL (<200); Glucose 87 mg/dL (74-106); HDL Cholesterol 52 mg/dL (>or=40); Potassium 3.8 mmol/L (3.5-5.1); Sodium 142 mmol/L (136-145); Triglyceride 69 mg/dL (<150)
[2025-01-19 21:04] LABS: Absolute Basophil Count 0.04 10^3/uL (0.0-0.2); Absolute Lymphocyte Count 2.86 10^3/uL (1.2-3.4); Absolute Monocyte Count 0.73 10^3/uL (0.1-0.8); Basophils % 0.4 %; HCT 42.9 % (40.0-50.0); HGB 14.5 g/dL (13.5-17.5); Lymphocytes % 30.6 %; MCH 30.2 pg (27.0-33.0); MCHC 33.8 % (32.0-36.0); MCV 89 fL (80-95); MPV 11.2 fL (8.0-11.0); Monocytes % 7.8 %; Neutrophils % 58.9 %; RDW 12.9 % (11.8-14.1); RDW-SD 42.1 fL; WBC 9.34 10^3/uL (4.4-10.8)
== END 2025-01-19 15:10 | disposition home or self-care (01) ==
LOC: NCHCN 15:09
PROVIDERS: PCP Internal Medicine; Visit Provider Internal Medicine
DX: I10 Essential (primary) hypertension (principal); L08.0 Pyoderma; G96.89 Other specified disorders of central nervous system; E78.5 Hyperlipidemia, unspecified; K76.0 Fatty (change of) liver, not elsewhere classified
CPT/HCPCS: 80048; 80061; 84450; 85025